=== PATIENT | male | born 1975 | race Caucasian/White ===

== ENCOUNTER 2018-11-29 11:05 | Emergency (ER) | payer SELFPAY ==
[2018-11-29 11:13] VITALS: BP 106/68; PULSE 72; TEMP 98.5; BMI 30.2
[2018-11-29] MEDS ORDERED: DIPHTH,PERTUSS(ACELL),TET 0.5 ML DISP.SYRIN IM ONE ×3 (12:05→12:18)
--- NOTE | 2018-11-29 12:44 | PDOC ---
History of Present Illness - General Chief Complaint: Laceration Stated Complaint: LT HAND INJURY Time Seen by Provider: 11/29/18 11:34 History Source: Patient - History of Present Illness Timing/Duration: reports: just prior to arrival Location: reports: hands Past History - Past Medical History Allergies/Adverse Reactions: Allergies Allergy/AdvReac Type Severity Reaction Status Date / Time No Known Allergies Allergy Verified 11/29/18 11:13 COPD: No - Psycho Social/Smoking Cessation Hx Smoking History: Never smoked Hx Alcohol Use: No Drug/Substance Use Hx: No Review of Systems - Review of Systems Neurological: No: Numbness, Tingling *Physical Exam - Vital Signs Last Vital Signs Temp Pulse Resp BP Pulse Ox 98.5 F 72 16 106/68 98 11/29/18 11:11 11/29/18 11:11 11/29/18 11:11 11/29/18 11:11 11/29/18 11:11 - Physical Exam General Appearance: Yes: Appropriately Dressed. No: Apparent Distress HEENT: positive: Normal Voice Neck: positive: Supple Respiratory/Chest: negative: Respiratory Distress Integumentary: positive: Other (~5 cm deep, linear lac to thenar eminence of L hand, no tendon visualized on wound exploration w/ passive and active ROM intact , sensation intact, radial pulse intact) Neurologic: positive: Fully Oriented, Alert, Normal Mood/Affect Procedures - Laceration/Wound Repair Left Hand Wound Length: 2.6 to 5.0 cm Wound's Depth, Shape: into muscle Irrigated w/ Saline: Yes Betadine Prep: Yes Anesthesia: 1% Lidocaine Amount of Anesthetic (ccs): 7 Wound Repaired With: Sutures Suture Size/Type: 5:0, nylon Number of Sutures: 15 Sterile Dressing Applied: Yes ED Treatment Course - Medications Given in the ED: ED Medications Discontinued Medications Generic Name Dose Route Start Last Admin Trade Name Freq PRN Reason Stop Dose Admin Diphtheria/Tetanus/Acell Pertussis 0.5 ml 11/29/18 12:05 11/29/18 12:34 Boostrix - IM 11/29/18 12:06 0.5 ml .ONCE ONE Administration Medical Decision Making - Medical Decision Making 11/29/18 12:44 43 yo M, denies any past medical history here with laceration to left hand 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 No sensory changes See exam L hand laceration No e/o complications on wound exploration, i.e tendon damage Tetanus updated Dc w/ wound check as needed in 2 days Discharge - Discharge Information Problems reviewed: Yes Clinical Impression/Diagnosis: Laceration of hand Qualifiers: Encounter type: initial encounter Foreign body presence: without foreign body Laterality: left Qualified Code(s): S61.412A - Laceration without foreign body of left hand, initial encounter Condition: Good Disposition: HOME - Follow up/Referral - Patient Discharge Instructions Patient Printed Discharge Instructions: Laceration Repair Additional Instructions: Keep dressing in place for at least 24 hours after which one can be opened to air. You can gently cleaned wound with mild soap and water after 24 hours to prevent crusting over the suture knots. You can also apply an antibiotic ointment twice a day until sutures are removed. Return for redness, discharge or fever Sutures are removed in 7 days - Post Discharge Activity
== END 2018-11-29 12:57 | disposition home or self-care (01) ==
LOC: JERFT 11:05
PROC: 0HQGXZZ Repair Left Hand Skin, External Approach (ICD-10-PCS; principal; 2018-11-29)
DX: S61.412A Laceration without foreign body of left hand, initial encounter (principal); W26.8XXA Contact with other sharp object(s), not elsewhere classified, initial encounter; Y93.89 Activity, other specified; Y92.512 Supermarket, store or market as the place of occurrence of the external cause
CPT/HCPCS: 90715; 99282-25